=== PATIENT | male | born 1955 | race Caucasian/White ===

== ENCOUNTER 2017-06-02 15:35 | Emergency (ER) | payer OTHER ==
[~2017-06-02] VITALS: Ht 177.8 cm; Wt 80.0 kg
[2017-06-02 15:38] VITALS: BP 123/83
== END 2017-06-02 22:50 | disposition left against medical advice (07) ==
LOC: ER 16:48
DX: Z53.21 Procedure and treatment not carried out due to patient leaving prior to being seen by health care provider (principal)

== ENCOUNTER 2025-05-17 17:20 | Emergency (ER) | payer MEDICARE, OTHER ==
[~2025-05-17] VITALS: Ht 170.2 cm; Wt 69.0 kg
[2025-05-17 17:22] VITALS: BP 157/69; PULSE 114; RESP 18; TEMP 98.6; O2SAT 98
[2025-05-17] MEDS ORDERED: NALT50TA5 MT (17:41)
== END 2025-05-17 18:18 | disposition home or self-care (01) ==
LOC: ER 17:20
DX: F10.129 Alcohol abuse with intoxication, unspecified (principal); J45.909 Unspecified asthma, uncomplicated; Y90.9 Presence of alcohol in blood, level not specified
CPT/HCPCS: 99283